=== PATIENT | female | born 1975 | race Caucasian/White ===

== ENCOUNTER 2019-08-27 13:21 | Emergency (ER) | payer BC ==
[~2019-08-27] VITALS: Ht 157.5 cm; Wt 62.6 kg
--- NOTE | 2019-08-27 13:45 | NUR ---
pt bibra from home to ed bed 09. pt is c/o mild headache, numbness and "weird sensation to her right side starting at her right foot going up to r side of head. also complaining about right ear feeling muffled. no facial droop, slurring of speech, pt has strong equal managed care specialist upon initial assessment. pt gowned and placed on monitor. stable vitals awaiting md zhong.
--- NOTE | 2019-08-27 13:50 | NUR ---
dr shane at bedside for eval
[2019-08-27 14:00] LABS: BASOPHILS % (AUTO) 0.4 % (0.0-2.0); EOSINOPHILS % (AUTO) 0.5 % (0.0-6.0); HEMATOCRIT 41 % (33-45); HEMOGLOBIN 13.8 g/dL (11.5-14.8); LYMPHOCYTES # (AUTO) 1.5 /CMM (0.8-4.8); LYMPHOCYTES % (AUTO) 32.7 % (20.0-44.0); MEAN CORPUSCULAR HGB CONC 34 g/dl (31.0-36.0); MEAN CORPUSCULAR VOLUME 89 fL (82-100); MONOCYTES # (AUTO) 0.4 /CMM (0.1-1.30); MONOCYTES % (AUTO) 9.6 % (2.0-12.0); NEUTROPHILS # (AUTO) 2.6 /CMM (1.8-8.9); NEUTROPHILS % (AUTO) 56.8 % (43.0-81.0); PLATELET COUNT (AUTO) 283 /CMM (150-450); WHITE BLOOD COUNT (AUTO) 4.6 K/uL (4.3-11.0)
[2019-08-27] MEDS ORDERED: IOHEXOL-350 100 ML VIAL IV ONE (14:00)
[2019-08-27] MEDS ORDERED: CT SWABBABLE VALVE TRANS SET 1 EA INFUS.SET MC ONE (14:00)
[2019-08-27] MEDS ORDERED: IV NS 0.9% 250 ML IV ONE (14:00)
--- NOTE | 2019-08-27 14:00 | NUR ---
pt taken to radiology for head ct via car
[2019-08-27 14:09] LABS: CALCIUM, SERUM 9.4 mg/dL (8.5-10.1); CREATININE 0.7 mg/dL (0.6-1.3)
--- NOTE | 2019-08-27 14:12 | NUR ---
returned from ct scan. pt being assessd by tele neuro md.
[2019-08-27 14:20] LABS: APPEARANCE,URINE Clear (CLEAR); BILIRUBIN,URINE Negative (NEGATIVE); BLOOD, URINE Small Ery/uL (NEGATIVE); COLOR,URINE Yellow (YELLOW); KETONES,URINE Negative (NEGATIVE); LEUKOCYTE ESTERASE ,URINE Negative (NEGATIVE); NITRITE, URINE Negative (NEGATIVE); PROTEIN,URINE Negative (NEGATIVE); UGLUCOSE Negative (NEGATIVE); UROBILINOGEN,URINE 0.2 EU/dL (0.2)
[2019-08-27] MEDS: IV NS 0.9% 1,000 ML BAG IV ONE (14:23)
[2019-08-27 14:24] LABS: BACTERIA,URINE Few /HPF (None Seen); SQUAMOUS EPITHELIAL CELL,UR Few /HPF (None Seen); WBC,URINE 0-2 /HPF (0-3)
[2019-08-27] MEDS: DEXAMETHASONE SOD PHOSPHATE 10 MG/ML VIAL IV ONE (14:26)
[2019-08-27] MEDS: METOCLOPRAMIDE HCL 10 MG/2 ML VIAL IV ONE (14:26)
[2019-08-27] MEDS: diphenhydrAMINE HCL 50 MG/ML VIAL IV ONE (14:26)
[2019-08-27] MEDS ORDERED: ASPI-605 PO (14:59)
[2019-08-27] MEDS ORDERED: ESTR1PAT86 TD (14:59)
[2019-08-27] MEDS ORDERED: ASPIRIN 325 MG TABLET ONE (15:19)
[2019-08-27] MEDS: ASPIRIN 81 MG TAB.CHEW PO ONE (15:24)
--- NOTE | 2019-08-27 15:24 | NUR ---
pt refused ordered aspirin. states took the full dose aspirin prior to being trasported to ED.
--- NOTE | 2019-08-27 15:55 | NUR ---
curb and gutter laborer at bedside for repeat troponin draw.
--- NOTE | 2019-08-27 16:34 | NUR ---
TEXTED DR. HAMILTON FOR MRII APPROVAL.
--- NOTE | 2019-08-27 18:34 | NUR ---
pt to radiology for brain mri via wheelchair.
[2019-08-27] MEDS ORDERED: ONDANSETRON HCL/PF 4 MG/2 ML VIAL IVP PRN (19:00)
[2019-08-27] MEDS ORDERED: Z GUARD REMEDY 2 OZ OINT TP PRN (19:00)
[2019-08-27] MEDS ORDERED: ACETAMINOPHEN 325 MG TABLET PO PRN (19:00)
[2019-08-27] MEDS ORDERED: HYDROCODONE/APAP 5/325MG 1 EACH TABLET PO PRN (19:00)
[2019-08-27] MEDS ORDERED: ZOLPIDEM TARTRATE 5 MG TABLET PO PRN (19:00)
[2019-08-27] MEDS ORDERED: MAGNESIUM HYDROXIDE 30 ML UDC PO PRN (19:00)
--- NOTE | 2019-08-27 19:17 | NUR ---
PATIENT RETURNED FROM MRI.
--- NOTE | 2019-08-27 19:21 | NUR ---
REPORT TO OWNER SPA DIRECTOR CHARAN INIGUEZ FOR [facility].
[2019-08-27 19:24] LABS: CALCIUM, SERUM 9.4 mg/dL (8.5-10.1); CREATININE 0.8 mg/dL (0.6-1.3); POTASSIUM 4.1 mmol/L (3.5-5.1)
--- NOTE | 2019-08-27 19:28 | NUR ---
HOT STAMP OPERATOR AT BEDSIDE FOR BLOOD DRAW.
[2019-08-27 19:36] LABS: BILIRUBIN,TOTAL 0.5 mg/dL (0.2-1.0); TOTAL PROTEIN, SERUM 7.5 g/dL (6.4-8.2)
[2019-08-27 20:11] LABS: THYROID STIMULATING HORMONE 1.077 uIU/mL (0.358-3.74)
[2019-08-27 20:19] VITALS: BP 122/79
--- NOTE | 2019-08-27 20:19 | NUR ---
Patient discharged to home in stable condition. Written and verbal after care instructions given. Patient verbalizes understanding of instruction.
--- NOTE | 2019-08-27 20:19 | NUR ---
IV removed. Catheter intact and site benign. Pressure and 4x4 applied to site. No bleeding noted.
[2019-08-27] MEDS ORDERED: ATORVASTATIN 10 MG TABLET PO SCH (22:00)
[2019-08-28] MEDS ORDERED: ASPIRIN 81 MG TAB.CHEW PO SCH (09:00)
== END 2019-08-27 20:20 | disposition home or self-care (01) ==
LOC: ER 13:35 → UNDOADMIN 16:00 → TELE 16:00
DX: I63.9 Cerebral infarction, unspecified (principal); R20.2 Paresthesia of skin; R51 Headache; R79.89 Other specified abnormal findings of blood chemistry; E78.5 Hyperlipidemia, unspecified; I45.10 Unspecified right bundle-branch block; Z79.899 Other long term (current) drug therapy; Z79.82 Long term (current) use of aspirin
CPT/HCPCS: 36415; 70450; 70496; 70498; 70551; 71045; 80048; 80053; 80061; 80305; 81001; 82962; 83036; 83880; 84443; 84484 ×2; 85025; 85652; 85730; 93005; 99285; J7030; J7050; Q9967; 81000-TC